=== PATIENT | male | born 2000 | race Caucasian/White ===

== ENCOUNTER 2021-08-15 04:35 | Emergency (ER) | payer BC ==
[~2021-08-15] VITALS: Ht 182.9 cm; Wt 86.4 kg
[2021-08-15 04:45] VITALS: BP 136/78; TEMP 98.3
[2021-08-15] MEDS ORDERED: CEPHALEXIN500 M1 PO (07:36)
[2021-08-15 07:52] VITALS: PULSE 77
== END 2021-08-15 07:52 | disposition home or self-care (01) ==
LOC: COL.ER 04:35
DX: S71.112A Laceration without foreign body, left thigh, initial encounter (principal); S91.332A Puncture wound without foreign body, left foot, initial encounter; Z28.311 Partially vaccinated for COVID-19; W26.8XXA Contact with other sharp object(s), not elsewhere classified, initial encounter; Y93.39 Activity, other involving climbing, rappelling and jumping off